=== PATIENT | female | born 1980 | race African-American/Black ===

== ENCOUNTER 2023-02-18 16:44 | Emergency (ER) | payer SELFPAY ==
[~2023-02-18] VITALS: Ht 193 cm; Wt 125.0 kg
[2023-02-18 17:12] VITALS: BP 144/87; PULSE 68; RESP 18; TEMP 97.6; O2SAT 96
[2023-02-18] MEDS ORDERED: IBUP-1456 PO (17:53)
== END 2023-02-18 17:55 | disposition home or self-care (01) ==
LOC: ER 16:44
DX: S46.812A Strain of other muscles, fascia and tendons at shoulder and upper arm level, left arm, initial encounter (principal); S93.691A Other sprain of right foot, initial encounter; Z88.8 Allergy status to other drugs, medicaments and biological substances; Z79.899 Other long term (current) drug therapy; W01.0XXA Fall on same level from slipping, tripping and stumbling without subsequent striking against object, initial encounter; Y93.89 Activity, other specified; Y92.89 Other specified places as the place of occurrence of the external cause; Y99.8 Other external cause status
CPT/HCPCS: 73030; 73630